=== PATIENT | male | born 1970 | race Caucasian/White ===

== ENCOUNTER 2023-02-21 11:50 | Inpatient (IN) | payer OTHER ==
[2023-02-21 12:20] VITALS: BMI 15.4
[2023-02-21] MEDS ORDERED: guaiFENesin 600 MG TABLET.ER (FP) PO PRN (13:55)
[2023-02-21] MEDS ORDERED: IBUPROFEN 400 MG TABLET (FP) PO PRN (13:55)
[2023-02-21] MEDS ORDERED: IBUPROFEN 600 MG TABLET (FP) PO PRN (13:55)
[2023-02-21] MEDS ORDERED: LOPERAMIDE HCL 2 MG CAPSULE PO PRN (13:55)
[2023-02-21] MEDS ORDERED: NICOTINE POLACRILEX 2 MG GUM BUC PRN (13:55)
[2023-02-21] MEDS ORDERED: MAG HYDROX/AL HYDROX/SIMETH 30 ML UNIT-DOSE CUP PO PRN (13:55)
[2023-02-21] MEDS ORDERED: MAGNESIUM HYDROX 2400MG/30ML ORAL SUSPENSION 30 ML CUP PO PRN (13:55)
[2023-02-21] MEDS ORDERED: NALOXONE HCL (KLOXXADO) 8 MG SPRAY NS PRN (13:55)
[2023-02-21] MEDS ORDERED: BENZOCAINE/MENTHOL (CHLORASEPTIC ) LOZENGE MM PRN (13:55)
[2023-02-21] MEDS ORDERED: BENZONATATE 200 MG CAPSULE PO PRN (13:55)
[2023-02-21] MEDS ORDERED: ACETAMINOPHEN 325 MG TABLET (FP) PO PRN (13:55)
[2023-02-21] MEDS ORDERED: ONDANSETRON *ODT* 4 MG TABLET SL PRN (13:55)
[2023-02-21] MEDS ORDERED: POLYETHYLENE GLYCOL (HEALTHYLAX) 3350 17 GM PACKET PO PRN (13:55)
[2023-02-21] MEDS ORDERED: DICYCLOMINE HCL 10 MG CAPSULE PO PRN (13:55)
[2023-02-21] MEDS ORDERED: NALOXONE HCL 0.4 MG/ML VIAL IM PRN (13:55)
[2023-02-21] MEDS: METHOCARBAMOL 500 MG TABLET PO PRN (22:19)
[2023-02-21] MEDS: MELATONIN 5 MG TABLETS PO SCH (22:19)
[2023-02-21] MEDS: hydrOXYzine PAMOATE 25 MG CAPSULE (FP) PO PRN (22:19)
[2023-02-21] MEDS: THIAMINE HCL 100 MG TABLET (FP) PO SCH (22:19)
[2023-02-22] MEDS: NICOTINE 14 MG/24 HOURS TOPICAL PATCH TD SCH (10:21)
[2023-02-22] MEDS: PRENATAL VITAMINS W/ FOLIC ACID TABLET (FP) PO SCH (10:21)
[2023-02-22 11:19] LABS: HEMATOCRIT 34.8 % (35.4-49); HEMOGLOBIN 11.4 GM/dL (11.7-16.9); MCH 30.9 pg (25.7-33.7); MCHC 32.9 g/dl (32.0-35.9); MEAN CELL VOLUME 93.8 fl (80-96); MEAN PLT VOLUME 9.2 fl (7.5-11.1); PLATELET COUNT 237 10^3/uL (134-434); RBC 3.71 M/mm3 (4.00-5.60); RDW 13.6 % (11.9-15.9); WHITE BLOOD COUNT 6.4 K/mm3 (4.0-10.0)
[2023-02-22 12:23] LABS: POTASSIUM 4.3 mmol/L (3.5-5.1)
[2023-02-22 12:35] LABS: ALBUMIN 3.4 g/dl (3.4-5.0); CALCIUM 9.3 mg/dL (8.5-10.1)
[2023-02-22 12:36] LABS: BLOOD UREA NITROGEN 21.5 mg/dL (7-18)
[2023-02-22 12:39] LABS: TOT PROT 6.6 g/dl (6.4-8.2)
[2023-02-22 12:40] LABS: BILIRUBIN,TOTAL 0.2 mg/dL (0.2-1)
[2023-02-22] MEDS: MELATONIN 5 MG TABLETS PO SCH (22:12)
[2023-02-22] MEDS: hydrOXYzine PAMOATE 25 MG CAPSULE (FP) PO PRN (22:12)
[2023-02-22] MEDS: THIAMINE HCL 100 MG TABLET (FP) PO SCH (22:12)
[2023-02-22] MEDS: METHOCARBAMOL 500 MG TABLET PO PRN (22:12)
[2023-02-22] MEDS: BISMUTH SUBSALICYLATE 262 MG/15 ML BTL PO PRN (22:13)
[2023-02-23] MEDS: PRENATAL VITAMINS W/ FOLIC ACID TABLET (FP) PO SCH (10:27)
[2023-02-23] MEDS: NICOTINE 14 MG/24 HOURS TOPICAL PATCH TD SCH (10:27)
[2023-02-23] MEDS: BISMUTH SUBSALICYLATE 262 MG/15 ML BTL PO PRN (17:51)
[2023-02-23] MEDS: MELATONIN 5 MG TABLETS PO SCH (22:11)
[2023-02-23] MEDS: THIAMINE HCL 100 MG TABLET (FP) PO SCH (22:11)
[2023-02-23] MEDS: METHOCARBAMOL 500 MG TABLET PO PRN (22:11)
[2023-02-24 06:10] VITALS: RESP 16
[2023-02-24 09:57] VITALS: PULSE 81; TEMP 97.8
[2023-02-24 10:00] VITALS: BP 149/93
== END 2023-02-24 10:05 | disposition other institution (70) | DRG 774 ==
LOC: YASAS 11:50 → UNDOADMIN 14:15 → Y6N 14:15 → Y3N 14:17
PROVIDERS: ADMIT Allergy & Immunology; ATTEND Surgery
PROC: HZ2ZZZZ Detoxification Services for Substance Abuse Treatment (ICD-10-PCS; principal; 2023-02-21)
DX: F10.20 Alcohol dependence, uncomplicated (principal); F14.20 Cocaine dependence, uncomplicated; I10 Essential (primary) hypertension; Z87.891 Personal history of nicotine dependence; Z87.19 Personal history of other diseases of the digestive system
CPT/HCPCS: 36415; 80053; 80307; 85027; 86780; 87635; 87811; 93005; 93010